=== PATIENT | female | born 1970 | race Caucasian/White ===

== ENCOUNTER 2018-06-10 09:30 | Emergency (ER) | payer OTHER ==
[2018-06-10] MEDS: KETOROLAC 15 MG INJ IM (11:24)
[2018-06-10 11:34] LABS: URINE BLOOD (Dip) POC Trace-lysed (NEGATIVE); URINE GLUCOSE (Dip) POC Negative (NEGATIVE); URINE KETONES (Dip) POC Negative (NEGATIVE); URINE LEUKOCYTE EST (Dip) POC Trace (NEGATIVE); URINE NITRITE (Dip) POC Negative (NEGATIVE); URINE TOTAL PROTEIN POC Negative (NEGATIVE)
[2018-06-10 11:34] LABS: URINE PH (Dip) POC 5.5 (5.0-8.5)
== END 2018-06-10 11:58 | disposition home or self-care (01) ==
LOC: FTE 09:30
DX: R51 Headache (principal)
CPT/HCPCS: 81003; 81025; 96372; 99284-25